=== PATIENT | female | born 1955 | race Caucasian/White ===

== ENCOUNTER → 2017-12-29 | Outpatient (CLI) | payer BC ==
[~2017-12-29] MED LIST: ASPIRIN E.C.81 M1 PO; DIOVAN HCT 11 TABLET PO; Effexor XR PO; Levothroid,Synthroid PO; NORVASC5 MG PO; PROTONIX40 MG PO; Singulair PO
== END | disposition home or self-care (01) ==
LOC: CDC 14:14
DX: Z01.810 Encounter for preprocedural cardiovascular examination (principal); G56.02 Carpal tunnel syndrome, left upper limb; I10 Essential (primary) hypertension; R94.31 Abnormal electrocardiogram [ECG] [EKG]
CPT/HCPCS: 93000